=== PATIENT | male | born 1980 | race Caucasian/White ===

== ENCOUNTER 2020-05-20 09:11 | Emergency (ER) | payer OTHER, SELFPAY ==
--- NOTE | 2020-05-20 09:23 | ED.GENADULT ---
HPI - General Adult General Chief complaint: Dental/Oral Stated complaint: rt jaw pain Source: patient and RN notes reviewed Mode of arrival: ambulatory Limitations: no limitations History of Present Illness HPI narrative: 39-year-old male presents with complaints of right upper dental pain for the past 3 days. Florentino report having dental work on Saturday05/16/2020 with increase dental pain, pressure, and redness to RT upper mouth for the past 3 days, worse this morning. Ibuprofen 600mg last on 05/19/2020 and Tylenol last on 05/19/2020 without relief. Denies any drainage. No fever. No jaw swelling. No neck swelling. No limitation with speaking or swallowing. Has history of dental caries. Has not seen a dentist recently. No dental trauma. No oral lesions. Exacerbating factors consist of chewing on RT side. No relieving factors. No dentures or bridges. Tolerating liquids well. The patient reports he have not been diagnosed with COVID-19. The patient reports he received 2 COVID-19 vaccines over 2 weeks ago. The patient reports he is not waiting for the results of a COVID-19 lab test. The patient reports he do not have chills, weakness, or fatigue. The patient reports he do not have a new or worsening cough or shortness of breath. Denies chest pain. The patient reports he do not have any rhinorrhea, congestion, loss of taste or smell, sore throat, nausea, vomiting, abdominal pain, and diarrhea. Denies recent traveling. Denies concerns for COVID-19 or exposures been home with limited outdoor exposure except for essential household needs, work, and return home. At this time, patient is not suspected of having COVID-19. Some parts of this dictation were generated by voice recognition software and may contain typographical and/or grammatical inaccuracies. Related Data Home Medications Medication Instructions Recorded Confirmed alprazolam 1 mg PO DAILY 05/20/20 05/20/20 Allergies Allergy/AdvReac Type Severity Reaction Status Date / Time acetaminophen Allergy Unknown Rash Verified 05/20/20 09:24 hydrocodone Allergy Unknown Rash Verified 05/20/20 09:24 Animal Dander Allergy Unknown Rash Uncoded 05/20/20 09:24 Review of Systems Review of Systems: Narrative: CONSTITUTIONAL: Denies fever, chills, sweats. EYES: Denies visual changes, redness, discharge. ENT: Denies rhinorrhea, congestion, sore throat, otalgia. Complains of RT upper dental pain. CARDIOVASCULAR: Denies chest pain, palpitations, edema. RESPIRATORY: Denies dyspnea, wheezing, cough. GASTROINTESTINAL: Denies abdominal pain, nausea, vomiting, diarrhea. SKIN: Denies rash or itching. MUSCULOSKELETAL: Denies acute back pain, joint pain, or myalgia. NEUROLOGIC: Denies numbness or focal weakness. PSYCHIATRIC: Denies anxiety or depression. All systems reviewed & are unremarkable except as noted in HPI and below. [facility] Past Medical History Medical History (Updated 05/20/20 @ 09:42 by DARIN Martin) Anxiety Panic attack Surgical History Surgical History (Updated 05/20/20 @ 09:42 by DARIN Martin) No significant past surgical history Family History Family History (Updated 05/20/20 @ 09:43 by DARIN Martin) Father Hypertension Diabetes mellitus Mother Alive and well Social History Social History (Updated 05/20/20 @ 09:44 by DARIN Martin) Smoking status: Former smoker Tobacco type: cigarettes Second hand tobacco smoke exposure: No Smoking end date: 02/12/18 Alcohol intake: former Alcohol use details: last over 10 years ago Substance use: never Living arrangements: with family Occupation/Education: occupation Gender identity (if verbalized by the patient): Male Sexual Orientation (if Verbalized by the Patient): Straight or Heterosexual Comments At time of signature, agree with nurse past medical, surgical, social, and family history. There is no relevant family history pertinent
[2020-05-20 09:29] VITALS: BP 124/76; PULSE 52; RESP 16; TEMP 36.6; O2SAT 99
== END 2020-05-20 09:50 | disposition home or self-care (01) ==
PROVIDERS: Emergency Provider Nurse Practitioner Family; PCP Internal Medicine
DX: K08.89 Other specified disorders of teeth and supporting structures (principal); Z87.891 Personal history of nicotine dependence; F41.0 Panic disorder [episodic paroxysmal anxiety]
CPT/HCPCS: 99213; G0463